=== PATIENT | male | born 1950 | race Caucasian/White ===

== ENCOUNTER 2020-08-11 10:17 | Inpatient (IN) | payer MEDICARE, OTHER ==
[2020-08-11] MEDS ORDERED: IBUPROFEN PO PRN (16:40)
[2020-08-11] MEDS ORDERED: [UNRECOGNIZED DRUG - OTHER] PO PRN (16:40)
[2020-08-11] MEDS ORDERED: Acetaminophen 500 MG Tab PO PRN (16:40)
[2020-08-11] MEDS ORDERED: HYDROCODONE PO PRN (16:40)
[2020-08-11] MEDS ORDERED: CHOLECALCIFEROL 50000 UNIT PO SCH (16:45)
--- NOTE | 2020-08-11 19:12 | PCM.HP.2 ---
H&P History of Present Illness - General Date of Service: 08/11/20 Admit Problem/Dx: Admission Diagnosis/Problem Admission Diagnosis/Problem Status post surgery Source of Information: Patient, Old Records History Limitations: Reports: No Limitations - History of Present Illness Initial Comments - Free Text/Narative: Jules is a 70 year old male with PMH of hypothyroidism, hypertension and prostate cancer who is admitted swing bed today from [facility] for strengthening following surgery. Patient was diagnosed with prostate cancer in 2017 and underwent radiation therapy and brachytherapy. This was complicated by radiation proctitis and developed a rectal ulcer. Had debridement of this in August of 2019. 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 He was admitted in February with a 4 week history of urethral, testicular and rectal pain as well as weight loss. CT showed a persistent fistula and an ulcer with probable osteomyelitis. He was treated with IV antibiotics and had debridement of the abscess. Was discharged home on oral antibiotics but had increasing pain in [facility] 2020. CT done then did show some improved so he was continued on oral Augmentin and Diflucan while awaiting surgery. Was admitted to [facility] on August 04 and underwent extensive pelvic debridement with pubic symphysis resection, cystectomy with ileal conduit, completion proctectomy and reconstruction of his colostomy. Was given IV antibiotics. Admits that is still having difficulty with ambulation due to weakness in his legs. Onset of Symptoms: Reports: Gradual Duration of Symptoms: Reports: Week(s): Location: Reports: Abdomen Quality: Reports: Ache Severity: Mild Improves with: Reports: Medication Associated Symptoms: Reports: Cough, Loss of Appetite. Denies: Confusion, Chest Pain, Fever/Chills, Nausea/Vomiting, Shortness of Breath - Related Data Allergies/Adverse Reactions: Allergies Allergy/AdvReac Type Severity Reaction Status Date / Time garlic AdvReac Nausea Verified 08/11/20 15:43 lisinopril AdvReac Muscle Verified 08/11/20 15:43 Weakness Home Medications: Home Meds B-Complex with Vitamin C [Vitamin B-Complex & C] 1 tab PO DAILY 03/12/20 [History] Cholecalciferol (Vitamin D3) [Vitamin D3] 50,000 units PO WEEKLY 03/12/20 [History] Esomeprazole [NexIUM] 40 mg PO DAILY 03/12/20 [History] HYDROcodone/Ibuprofen [Hydrocodone-Ibuprofen 7.5-200] 1 tab PO Q6HR PRN 03/12/20 [History] Multivitamin 1 tab PO DAILY 03/12/20 [History] traZODone HCl [Trazodone HCl] 100 mg PO BEDTIME PRN 03/12/20 [History] Acetaminophen [Tylenol Extra Strength] 1,000 mg PO Q6HR PRN 08/11/20 [History] Docusate Sodium/Sennosides [Senokot-S] 1 tab PO BID PRN 08/11/20 [History] Levothyroxine 75 mcg PO DAILY 08/11/20 [History] Past Medical History Cardiovascular History: Reports: Hypertension Gastrointestinal History: Reports: Other (See Below) Other Gastrointestinal History: history of rectal fistula/proctitis with complete proctectomy Genitourinary History: Reports: Urostomy Endocrine/Metabolic History: Reports: Hypothyroidism Oncologic (Cancer) History: Reports: Prostate - Past Surgical History GI Surgical History: Reports: Colostomy Male Surgical History: Reports: Cystectomy Musculoskeletal Surgical History: Reports: Other (See Below) Other Musculoskeletal Surgeries/Procedures:: pelvic debridement Oncologic Surgical History: Reports: Other (See Below) Other Oncologic Surgeries/Procedures: brachytherapy with radioactive implants Social & Family History - Family History Family Medical History: No Pertinent Family History - Tobacco Use Tobacco Use Status *Q: Unknown Ever Used Tobacco H&P Review of Systems - Review of Systems: Review Of Systems: See Below General: Reports: Malaise, Weakness, Fatigue, Decreased Appetite. Denies: Fever, Chills HEENT: Reports: No Symptoms Pulmonary: Reports: Cough. Denies: Shortness of Breath Cardiovascular: Denies: Chest Pain, Edema, Lightheadedness Gastrointestinal: Reports: Abdominal Pain, Other (colostomy) Genitourinary: Reports: Other (urostomy bag) Musculoskeletal: Reports: No Symptoms Skin: Reports: Other (abdominal incision) Psychiatric: Reports: No Symptoms Neurological: Reports: Weakness Exam - Exam Exam: See Below - Vital Signs Vital Signs: Last Vital Signs Temp 96.7 F L 08/11/20 16:34 Pulse 112 H 08/11/20 16:34 Resp 16 08/11/20 16:34 BP 123/57 L 08/11/20 16:34 Pulse Ox 100 08/11/20 16:34 Weight: 138 lb 0.15 oz - Exam General: Alert, Oriented HEENT: Conjunctiva Clear, Mucosa Moist & [place], Posterior Pharynx Clear Neck: Supple Lungs: Clear to Auscultation, Normal Respiratory Effort Cardiovascular: Regular Rate, Regular Rhythm GI/Abdominal Exam: Normal Bowel Sounds, Tender, Other (midline incision, radha intact. 2 intact SWATI drains with serous drainage. Colostomy with soft brown stool. Urostomy with clear yellow urine) Extremities: Normal Inspection, No Pedal Edema Skin: Warm, Dry Neuro Extensive - Mental Status: Alert, Oriented x3 Sepsis Event Note - Evaluation Sepsis Screening Result: No Definite Risk - Focused Exam Vital Signs: Vital Signs Temp Pulse Resp BP Pulse Ox 08/11/20 16:34 96.7 F L 112 H 16 123/57 L 100 - Problem List (1) Prostate CA SNOMED Code(s): 662239510 ICD Code: C61 - MALIGNANT NEOPLASM OF PROSTATE Status: Acute Priority: High Current Visit: Yes (2) Osteomyelitis SNOMED Code(s): 21880529 ICD Code: M86.9 - OSTEOMYELITIS, UNSPECIFIED Status: Acute Priority: High Current Visit: Yes (3) Urethral fistula SNOMED Code(s): 38458468 ICD Code: N36.0 - URETHRAL FISTULA Status: Acute Priority: High Current Visit: Yes (4) Weakness SNOMED Code(s): 64326102 ICD Code: R53.1 - WEAKNESS Status: Acute Priority: High Current Visit: Yes Problem List Initiated/Reviewed/Updated: Yes Orders Last 24hrs: Active Orders 24 hr Category Date Time Status Patient Status [ADT] Routine ADT 08/11/20 16:34 Active Ambulate [RC] QID Care 08/11/20 16:34 Active Communication Order [RC] ASDIRECTED Care 08/11/20 16:26 Active Communication Order [RC] Q7D Care 08/11/20 16:33 Active Communication Order [RC] Q7D Care 08/13/20 10:00 Active Dietary Supplements [RC] 0700,1200,1730 Care 08/11/20 16:34 Active Oxygen Therapy [RC] .PRN Care 08/11/20 16:34 Active Up ad Dee [RC] .PRN Care 08/11/20 16:34 Active Vital Signs [RC] 0800,2000 Care 08/11/20 16:34 Active PT Evaluation and Treatment [CONS] Routine Cons 08/11/20 16:34 Active Regular Diet [DIET] Diet 08/11/20 Dinner Active Acetaminophen [Tylenol Extra Strength] Med 08/11/20 16:40 Active 1,000 mg PO Q6H PRN Acetaminophen/HYDROcodone [[place] 325-5 MG] Med 08/11/20 17:21 Active 1 tab PO Q12H PRN B-Complex with Vitamin C [Vitamin B-Complex & C] Med 08/12/20 08:00 Pending 0 tab PO DAILY Cholecalciferol (Vitamin D3) [Vitamin D3] Med 08/11/20 16:45 Pending 0 units PO Q7D Docusate Sodium/Sennosides [Senna Plus] Med 08/11/20 17:01 Active 1 tab PO BID PRN Enoxaparin [Lovenox] Med 08/12/20 08:00 Active 40 mg SUBCUT DAILY Ertapenem [INVanz] Med 08/11/20 20:00 Active 1 gm IVPUSH DAILY@1999 Fluconazole [Diflucan] Med 08/12/20 08:00 Active 400 mg PO DAILY Heparin Sodium [Heparin Lock Flush 100 Units/ML] Med 08/11/20 20:00 Active 500 units FLUSH Q24H Levothyroxine [Synthroid] Med 08/12/20 07:00 Active 75 mcg PO ACBREAKFAST Multivitamins [Tab-A-Eleni] Med 08/12/20 08:00 Active 1 tab PO DAILY Pantoprazole [ProTONIX] Med 08/12/20 08:00 Active 40 mg PO DAILY traZODone Med 08/11/20 20:00 Active 100 mg PO BEDTIME PRN Lifting Restrictions [OM.PC] Routine Oth 08/11/20 16:34 Ordered Resuscitation Status Routine Resus Stat 08/11/20 16:34 Ordered Medication Orders Acetaminophen (Acetaminophen 500 Mg Tab) 1,000 mg PO Q6H PRN PRN Reason: Pain Hydrocodone Bitart/Acetaminophen (Acetaminophen/Hydrocodone 325-5 Mg Tab) 1 tab PO Q12H PRN PRN Reason: Pain (moderate 4-6) Enoxaparin Sodium (Enoxaparin 40 Mg/0.4 Ml Syringe) 40 mg SUBCUT DAILY [facility] Ertapenem (Ertapenem 1 Gm Vial) 1 gm IVPUSH DAILY@2000 [facility] Fluconazole (Fluconazole 100 Mg Tab) 400 mg PO DAILY [facility] Stop: 09/15/20 08:00 Heparin Sodium (Porcine) (Heparin Sodium 100 Units/Ml 5 Ml Syringe) 500 units FLUSH Q24H [facility] Levothyroxine Sodium (Levothyroxine 50 Mcg Tab) 75 mcg PO ACBREAKFAST [facility] Multivitamins/Minerals/Vitamin C (Multivitamin Tab) 1 tab PO DAILY [facility] B-Complex With (Vitamin C Tab) 0 tab PO DAILY [facility] Cholecalciferol ( Vitamin D3) 50,000 Unit Cap 0 units PO Q7D [facility] Pantoprazole Sodium (Pantoprazole 40 Mg Tab.Cr) 40 mg PO DAILY [facility] Senna/Docusate Sodium (Docusate Sodium/Sennosides 50-8.6 Mg Tab) 1 tab PO BID PRN PRN Reason: Constipation Trazodone HCl (Trazodone 50 Mg Tab) 100 mg PO BEDTIME PRN PRN Reason: Sleep Assessment/Plan Comment:: 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
[2020-08-11] MEDS: Ertapenem 1 GM Vial IVPUSH SCH (19:52)
[2020-08-11] MEDS: Acetaminophen/HYDROcodone 325-5 MG Tab PO PRN (20:32)
[2020-08-11] MEDS: traZODone 50 MG Tab PO PRN (20:33)
[2020-08-12] MEDS: Levothyroxine 50 MCG Tab PO SCH (06:44)
[2020-08-12] MEDS: Multivitamin Tab PO SCH (07:42)
[2020-08-12] MEDS: Pantoprazole 40 MG Tab.CR PO SCH (07:42)
[2020-08-12] MEDS: Fluconazole 100 MG Tab PO SCH (07:42)
[2020-08-12] MEDS: Enoxaparin 40 MG/0.4 ML Syringe SUBCUT SCH (07:43)
[2020-08-12] MEDS ORDERED: B COMPLEX WITH VITAMIN C PO SCH (08:00)
[2020-08-12] MEDS ORDERED: Levothyroxine 88 MCG Tab PO SCH (08:00)
[2020-08-12] MEDS: Acetaminophen/HYDROcodone 325-5 MG Tab PO PRN ×3 (08:43→21:03)
[2020-08-12] MEDS: Ertapenem 1 GM Vial IVPUSH SCH (19:20)
[2020-08-12] MEDS: traZODone 50 MG Tab PO PRN (21:04)
[2020-08-13] MEDS: Levothyroxine 50 MCG Tab PO SCH (07:03)
[2020-08-13] MEDS: Pantoprazole 40 MG Tab.CR PO SCH (07:35)
[2020-08-13] MEDS: Multivitamin Tab PO SCH (07:35)
[2020-08-13] MEDS: Fluconazole 100 MG Tab PO SCH (07:35)
[2020-08-13] MEDS: Cholecalciferol (Vitamin D3) 25 MCG Tab PO SCH (07:36)
[2020-08-13] MEDS: Enoxaparin 40 MG/0.4 ML Syringe SUBCUT SCH (07:36)
[2020-08-13] MEDS: Vitamin B Complex Cap PO SCH (07:36)
[2020-08-13] MEDS: Acetaminophen/HYDROcodone 325-5 MG Tab PO PRN ×3 (07:41→21:36)
[2020-08-13] MEDS: Ertapenem 1 GM Vial IVPUSH SCH (20:07)
[2020-08-13] MEDS: traZODone 50 MG Tab PO PRN (21:37)
[2020-08-14] MEDS: Levothyroxine 50 MCG Tab PO SCH (06:18)
[2020-08-14] MEDS: Enoxaparin 40 MG/0.4 ML Syringe SUBCUT SCH (07:35)
[2020-08-14] MEDS: Fluconazole 100 MG Tab PO SCH (07:35)
[2020-08-14] MEDS: Multivitamin Tab PO SCH (07:35)
[2020-08-14] MEDS: Vitamin B Complex Cap PO SCH (07:36)
[2020-08-14] MEDS: Pantoprazole 40 MG Tab.CR PO SCH (07:36)
[2020-08-14] MEDS: Cholecalciferol (Vitamin D3) 25 MCG Tab PO SCH (07:36)
[2020-08-14] MEDS: Acetaminophen/HYDROcodone 325-5 MG Tab PO PRN ×3 (07:56→21:32)
[2020-08-14] MEDS: Ertapenem 1 GM Vial IVPUSH SCH (20:03)
[2020-08-14] MEDS: traZODone 50 MG Tab PO PRN (21:33)
[2020-08-15] MEDS: Acetaminophen/HYDROcodone 325-5 MG Tab PO PRN ×3 (05:46→20:10)
[2020-08-15] MEDS: Levothyroxine 50 MCG Tab PO SCH (06:04)
[2020-08-15] MEDS: Enoxaparin 40 MG/0.4 ML Syringe SUBCUT SCH (08:15)
[2020-08-15] MEDS: Pantoprazole 40 MG Tab.CR PO SCH (08:16)
[2020-08-15] MEDS: Multivitamin Tab PO SCH (08:16)
[2020-08-15] MEDS: Vitamin B Complex Cap PO SCH (08:16)
[2020-08-15] MEDS: Cholecalciferol (Vitamin D3) 25 MCG Tab PO SCH (08:16)
[2020-08-15] MEDS: Fluconazole 100 MG Tab PO SCH (08:18)
[2020-08-15] MEDS: Ertapenem 1 GM Vial IVPUSH SCH (20:12)
[2020-08-15] MEDS: traZODone 50 MG Tab PO PRN (20:14)
[2020-08-16] MEDS: Levothyroxine 50 MCG Tab PO SCH (06:35)
[2020-08-16] MEDS: Cholecalciferol (Vitamin D3) 25 MCG Tab PO SCH (07:40)
[2020-08-16] MEDS: Multivitamin Tab PO SCH (07:40)
[2020-08-16] MEDS: Vitamin B Complex Cap PO SCH (07:40)
[2020-08-16] MEDS: Pantoprazole 40 MG Tab.CR PO SCH (07:40)
[2020-08-16] MEDS: Enoxaparin 40 MG/0.4 ML Syringe SUBCUT SCH (07:40)
[2020-08-16] MEDS: Fluconazole 100 MG Tab PO SCH (07:40)
[2020-08-16] MEDS: Acetaminophen/HYDROcodone 325-5 MG Tab PO PRN ×3 (08:33→21:10)
[2020-08-16] MEDS: Ertapenem 1 GM Vial IVPUSH SCH (19:22)
[2020-08-16] MEDS: traZODone 50 MG Tab PO PRN (21:11)
[2020-08-17] MEDS: Levothyroxine 50 MCG Tab PO SCH (07:07)
[2020-08-17] MEDS: Pantoprazole 40 MG Tab.CR PO SCH (07:10)
[2020-08-17] MEDS: Cholecalciferol (Vitamin D3) 25 MCG Tab PO SCH (07:10)
[2020-08-17] MEDS: Vitamin B Complex Cap PO SCH (07:10)
[2020-08-17] MEDS: Multivitamin Tab PO SCH (07:10)
[2020-08-17] MEDS: Enoxaparin 40 MG/0.4 ML Syringe SUBCUT SCH (07:11)
[2020-08-17] MEDS: Fluconazole 100 MG Tab PO SCH (07:11)
[2020-08-17] MEDS: Acetaminophen/HYDROcodone 325-5 MG Tab PO PRN ×3 (07:14→21:25)
[2020-08-17] MEDS: Ertapenem 1 GM Vial IVPUSH SCH (20:19)
[2020-08-17] MEDS: traZODone 50 MG Tab PO PRN (21:25)
[2020-08-18] MEDS: Levothyroxine 50 MCG Tab PO SCH (06:39)
[2020-08-18] MEDS: Pantoprazole 40 MG Tab.CR PO SCH (07:01)
[2020-08-18 07:26] LABS: CHLORIDE,CL 103 mEq/L (98-106); SODIUM,NA 141 mEq/L (136-145)
[2020-08-18] MEDS: Enoxaparin 40 MG/0.4 ML Syringe SUBCUT SCH (08:41)
[2020-08-18] MEDS: Cholecalciferol (Vitamin D3) 25 MCG Tab PO SCH (08:41)
[2020-08-18] MEDS: Fluconazole 100 MG Tab PO SCH (08:42)
[2020-08-18] MEDS: Vitamin B Complex Cap PO SCH (08:42)
[2020-08-18] MEDS: Multivitamin Tab PO SCH (08:42)
[2020-08-18] MEDS: Acetaminophen/HYDROcodone 325-5 MG Tab PO PRN ×2 (14:19→21:07)
[2020-08-18] MEDS ORDERED: Ertapenem 1 GM Vial IVPUSH ONE (18:00)
[2020-08-18] MEDS: traZODone 50 MG Tab PO PRN (21:07)
[2020-08-19] MEDS: Levothyroxine 50 MCG Tab PO SCH (07:21)
[2020-08-19] MEDS: Pantoprazole 40 MG Tab.CR PO SCH (07:21)
[2020-08-19] MEDS: Fluconazole 100 MG Tab PO SCH (08:32)
[2020-08-19] MEDS: Cholecalciferol (Vitamin D3) 25 MCG Tab PO SCH (08:33)
[2020-08-19] MEDS: Vitamin B Complex Cap PO SCH (08:33)
[2020-08-19] MEDS: Multivitamin Tab PO SCH (08:34)
[2020-08-19] MEDS: Enoxaparin 40 MG/0.4 ML Syringe SUBCUT SCH (08:34)
[2020-08-19] MEDS: Acetaminophen/HYDROcodone 325-5 MG Tab PO PRN ×3 (08:39→20:00)
[2020-08-19] MEDS: Ertapenem 1 GM Vial IVPUSH SCH (14:44)
[2020-08-19] MEDS: traZODone 50 MG Tab PO PRN (20:00)
[2020-08-20] MEDS: Levothyroxine 50 MCG Tab PO SCH (06:11)
[2020-08-20] MEDS: Pantoprazole 40 MG Tab.CR PO SCH (06:13)
[2020-08-20 07:47] VITALS: BP 132/71; PULSE 88
[2020-08-20] MEDS: Fluconazole 100 MG Tab PO SCH (07:48)
[2020-08-20] MEDS: Vitamin B Complex Cap PO SCH (07:48)
[2020-08-20] MEDS: Enoxaparin 40 MG/0.4 ML Syringe SUBCUT SCH (07:48)
[2020-08-20] MEDS: Multivitamin Tab PO SCH (07:48)
[2020-08-20] MEDS: Cholecalciferol (Vitamin D3) 25 MCG Tab PO SCH (07:48)
[2020-08-20] MEDS: Acetaminophen/HYDROcodone 325-5 MG Tab PO PRN (10:57)
[2020-08-20] MEDS: Ertapenem 1 GM Vial IVPUSH SCH (15:32)
--- NOTE | 2020-08-21 01:35 | PCM.DCSUM1 ---
Discharge Summary - Hospital Course HPI Initial Comments: Jules is a 70 year old male with PMH of hypothyroidism, hypertension and prostate cancer who is admitted swing bed today from [facility] for strengthening following surgery. Patient was diagnosed with prostate cancer in 2017 and underwent radiation therapy and brachytherapy. This was complicated by radiation proctitis and developed a rectal ulcer. Had debridement of this in August of 2019. 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 He was admitted in February with a 4 week history of urethral, testicular and rectal pain as well as weight loss. CT showed a persistent fistula and an ulcer with probable osteomyelitis. He was treated with IV antibiotics and had debridement of the abscess. Was discharged home on oral antibiotics but had increasing pain in April of 2020. CT done then did show some improved so he was continued on oral Augmentin and Diflucan while awaiting surgery. Was admitted to [facility] on August 04 and underwent extensive pelvic debridement with pubic symphysis resection, cystectomy with ileal conduit, completion proctectomy and reconstruction of his colostomy. Was given IV antibiotics. Admits that is still having difficulty with ambulation due to weakness in his legs. Diagnosis: Stroke: No - Discharge Data Discharge Date: 08/21/20 Discharge Disposition: Home, Self-Care 01 Condition: Fair - Referral to Home Health Primary Care Physician: Phillip Tolentino MD - Discharge Diagnosis/Problem(s) (1) Prostate CA SNOMED Code(s): 329986232 ICD Code: C61 - MALIGNANT NEOPLASM OF PROSTATE Status: Acute Priority: High (2) Urethral fistula SNOMED Code(s): 66867844 ICD Code: N36.0 - URETHRAL FISTULA Status: Acute Priority: High (3) Weakness SNOMED Code(s): 39488619 ICD Code: R53.1 - WEAKNESS Status: Acute Priority: High (4) Osteomyelitis SNOMED Code(s): 95055040 ICD Code: M86.9 - OSTEOMYELITIS, UNSPECIFIED Status: Acute Priority: High Qualifiers: Osteomyelitis type: subacute Osteomyelitis location: other site Qualified Code(s): M86.28 - Subacute osteomyelitis, other site - Patient Summary/Data Consults: Consultations 08/11/20 16:34 PT Evaluation and Treatment [CONS] Routine - Patient Instructions Diet: Regular Diet as Tolerated Activity: As Tolerated Showering/Bathing: May Shower Wound/Incision Care: Keep Operative Site/Wound Site Clean and Dry Notify Provider of: Fever, Increased Pain, Swelling and Redness - Discharge Plan *PRESCRIPTION DRUG MONITORING PROGRAM REVIEWED*: No *COPY OF PRESCRIPTION DRUG MONITORING REPORT IN PATIENT ALLAN: No Prescriptions/Med Rec: Fluconazole [Diflucan] 400 mg PO DAILY #30 tablet Home Medications: Home Meds B-Complex with Vitamin C [Vitamin B-Complex & C] 1 tab PO DAILY 03/12/20 [History] Cholecalciferol (Vitamin D3) [Vitamin D3] 50,000 units PO WEEKLY 03/12/20 [History] Esomeprazole [NexIUM] 40 mg PO DAILY 03/12/20 [History] HYDROcodone/Ibuprofen [Hydrocodone-Ibuprofen 7.5-200] 1 tab PO Q6HR PRN 03/12/20 [History] Multivitamin 1 tab PO DAILY 03/12/20 [History] traZODone HCl [Trazodone HCl] 100 mg PO BEDTIME PRN 03/12/20 [History] Acetaminophen [Tylenol Extra Strength] 1,000 mg PO Q6HR PRN 08/11/20 [History] Docusate Sodium/Sennosides [Senokot-S] 1 tab PO BID PRN 08/11/20 [History] Levothyroxine 75 mcg PO DAILY 08/11/20 [History] Docusate Sodium/Sennosides [Senna Plus] 1 tab PO DAILY tablet 08/20/20 [Rx] Ertapenem [INVanz] 1 gm IVPUSH DAILY@1500 vial 08/20/20 [Rx] Fluconazole [Diflucan] 400 mg PO DAILY #30 tablet 08/20/20 [Rx] Oxygen Therapy Mode: Room Air - Discharge Summary/Plan Comment DC Time >30 min.: Yes Discharge Summary/Plan Comment: Patient to be discharged home today. Will be staying with son and daughter in law while receiving IV antibiotics daily. Patient to return daily at 1500hrs for Ertapenam. Follow up appointments already scheduled. Patient to continue Diflucan daily until the 15 of September while receiving antibiotics. Patient continues to have SWATI bulbs and will d/c once drainage is less than 30ml's daily for 2 consecutive days. - General Info Admission Dx/Problem (Free Text: Admission Diagnosis/Problem Admission Diagnosis/Problem Status post surgery Subjective Update: Jules is in good spirits this morning and feels ready for discharge. He denies any set backs presently. Overall feels he is continuing to improve daily. Functional Status: Reports: Pain Controlled, Tolerating Diet, Ambulating - Review of Systems General: Reports: No Symptoms. Denies: Fever, Chills HEENT: Reports: No Symptoms Pulmonary: Reports: No Symptoms Cardiovascular: Reports: No Symptoms Gastrointestinal: Reports: No Symptoms Genitourinary: Reports: No Symptoms Musculoskeletal: Reports: Back Pain Skin: Reports: Other (SWATI bulbs) Neurological: Reports: No Symptoms Psychiatric: Reports: No Symptoms - Patient Data Vitals - Most Recent: Last Vital Signs Temp 98.4 F 08/20/20 07:47 Pulse 88 08/20/20 07:47 Resp 18 08/20/20 07:47 BP 132/71 08/20/20 07:47 Pulse Ox 100 08/20/20 07:47 Weight - Most Recent: 129 lb 8 oz I&O - Last 24 hours: Intake & Output 08/20/20 08/20/20 08/21/20 14:59 22:59 06:59 Output Total 670 Balance -670 Med Orders - Current: Current Medications Discontinued Medications Acetaminophen (Acetaminophen 500 Mg Tab) 1,000 mg PO Q6H PRN PRN Reason: Pain Last Admin: 08/12/20 03:48 Dose: 1,000 mg Documented by: Hydrocodone Bitart/Acetaminophen (Acetaminophen/Hydrocodone 325-5 Mg Tab) 1 tab PO Q12H PRN PRN Reason: Pain (moderate 4-6) Last Admin: 08/12/20 08:43 Dose: 1 tab Documented by: Hydrocodone Bitart/Acetaminophen (Acetaminophen/Hydrocodone 325-5 Mg Tab) 1 tab PO Q6H PRN PRN Reason: Pain (moderate 4-6) Last Admin: 08/20/20 10:57 Dose: 1 tab Documented by: Cholecalciferol (Cholecalciferol (Vitamin D3) 25 Mcg Tab) 125 mcg PO DAILY [facility] Last Admin: 08/20/20 07:48 Dose: 125 mcg Documented by: Enoxaparin Sodium (Enoxaparin 40 Mg/0.4 Ml Syringe) 40 mg SUBCUT DAILY [facility] Last Admin: 08/20/20 07:48 Dose: 40 mg Documented by: Ertapenem (Ertapenem 1 Gm Vial) 1 gm IVPUSH DAILY@2000 [facility] Last Admin: 08/17/20 20:19 Dose: 1 gm Documented by: Ertapenem (Ertapenem 1 Gm Vial) 1 gm IVPUSH ONETIME ONE Stop: 08/18/20 18:01 Last Admin: 08/18/20 17:53 Dose: 1 gm Documented by: Ertapenem (Ertapenem 1 Gm Vial) 1 gm IVPUSH DAILY@1500 [facility] Last Admin: 08/20/20 15:32 Dose: 1 gm Documented by: Fluconazole (Fluconazole 100 Mg Tab) 400 mg PO DAILY [facility] Stop: 09/15/20 08:00 Last Admin: 08/20/20 07:48 Dose: 400 mg Documented by: Heparin Sodium (Porcine) (Heparin Sodium 100 Units/Ml 5 Ml Syringe) 500 units FLUSH DAILY [facility] Heparin Sodium (Porcine) (Heparin Sodium 100 Units/Ml 5 Ml Syringe) 500 units FLUSH ASDIRECTED [facility] Heparin Sodium (Porcine) (Heparin Sodium 100 Units/Ml 5 Ml Syringe) 500 units FLUSH Q24H [facility] Last Admin: 08/17/20 20:16 Dose: 500 units Documented by: Heparin Sodium (Porcine) (Heparin Sodium 100 Units/Ml 5 Ml Syringe) 500 units FLUSH Q24H [facility] Last Admin: 08/18/20 18:00 Dose: Not Given Documented by: Heparin Sodium (Porcine) (Heparin Sodium 100 Units/Ml 5 Ml Syringe) 500 units FLUSH Q24H [facility] Stop: 08/18/20 18:01 Last Admin: 08/18/20 17:55 Dose: 500 units Documented by: Heparin Sodium (Porcine) (Heparin Sodium 100 Units/Ml 5 Ml Syringe) 500 units FLUSH DAILY@1500 [facility] Last Admin: 08/20/20 15:33 Dose: 500 units Documented by: Levothyroxine Sodium (Levothyroxine 88 Mcg Tab) 88 mcg PO DAILY [facility] Levothyroxine Sodium (Levothyroxine 50 Mcg Tab) 75 mcg PO ACBREAKFAST [facility] Last Admin: 08/20/20 06:11 Dose: 75 mcg Documented by: Multivitamins/Minerals/Vitamin C (Multivitamin Tab) 1 tab PO DAILY [facility] Last Admin: 08/20/20 07:48 Dose: 1 tab Documented by: B-Complex With (Vitamin C Tab) 0 tab PO DAILY [facility] Last Admin: 08/12/20 11:25 Dose: Not Given Documented by: Cholecalciferol ( Vitamin D3) 50,000 Unit Cap 0 units PO Q7D [facility] Last Admin: 08/12/20 11:25 Dose: Not Given Documented by: Non-Formulary Medication (Hydrocodone/Ibuprofen [Hydrocodone-Ibuprofen 7.5-200]) 1 tab PO Q6HR PRN PRN Reason: Pain Pantoprazole Sodium (Pantoprazole 40 Mg Tab.Cr) 40 mg PO DAILY [facility] Last Admin: 08/18/20 07:01 Dose: 40 mg Documented by: Pantoprazole Sodium (Pantoprazole 40 Mg Tab.Cr) 40 mg PO ACBREAKFAST [facility] Last Admin: 08/20/20 06:13 Dose: 40 mg Documented by: Senna/Docusate Sodium (Docusate Sodium/Sennosides 50-8.6 Mg Tab) 1 tab PO BID PRN PRN Reason: Constipation Last Admin: 08/15/20 06:06 Dose: 1 tab Documented by: Senna/Docusate Sodium (Docusate Sodium/Sennosides 50-8.6 Mg Tab) 1 tab PO DAILY [facility] Last Admin: 08/20/20 07:48 Dose: 1 tab Documented by: Trazodone HCl (Trazodone 50 Mg Tab) 100 mg PO BEDTIME PRN PRN Reason: Sleep Last Admin: 08/19/20 20:00 Dose: 100 mg Documented by: Vitamin B Complex (Vitamin B Complex Cap) 1 each PO DAILY [facility] Last Admin: 08/20/20 07:48 Dose: 1 each Documented by: - Exam General: Reports: Alert, Oriented, Cooperative, No Acute Distress Lungs: Reports: Clear to Auscultation, Normal Respiratory Effort Cardiovascular: Reports: Regular Rate, Regular Rhythm, No Murmurs GI/Abdominal Exam: Normal Bowel Sounds, Soft, Non-Tender Extremities: Normal Inspection, No Pedal Edema Skin: Reports: Warm, Dry, Intact Psy/Mental Status: Reports: Alert
== END 2020-08-20 16:28 | disposition home or self-care (01) | DRG 540 ==
LOC: CC.MS 15:41 → UNDOADMIN 15:41 → CC.MS 16:34
PROVIDERS: ADMIT Family Medicine; ATTEND Family Medicine
DX: M86.28 Subacute osteomyelitis, other site (principal); N36.0 Urethral fistula; N41.2 Abscess of prostate; R53.1 Weakness; C61 Malignant neoplasm of prostate; E03.9 Hypothyroidism, unspecified; I10 Essential (primary) hypertension; Z88.8 Allergy status to other drugs, medicaments and biological substances; Z91.09 Other allergy status, other than to drugs and biological substances; Z79.890 Hormone replacement therapy; Z79.899 Other long term (current) drug therapy
CPT/HCPCS: 36415; 80048; 84460; 85025; 97110-GP; 97161-GP; 97530-GP; A9270-GY; J1335; J1642; J1650